=== PATIENT | male | born 1970 | race Hispanic/Latino ===

== ENCOUNTER 2018-04-07 19:18 | Emergency (ER) | payer MEDICAID ==
[2018-04-07 19:24] VITALS: BMI 26.6
[2018-04-07] MEDS ORDERED: Naloxone 0.4 mg/ml Inj (Adult) ONE (19:31)
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
[2018-04-07 19:50] VITALS: RESP 18; TEMP 98.2
[2018-04-07 20:13] LABS: BASO # 0.01 K/mm3 (0.0-2.0); BASO % 0.1 % (0.0-3.0); EOS # 0.3 (0.0-0.7); EOS % 3.6 % (1.5-5.0); GRAN # 5.34 (1.4-6.5); GRAN % 56.5 % (50.0-68.0); HEMOGLOBIN 13.7 g/dL (14.0-18.0); LYMPH # 3.1 (1.2-3.4); LYMPH % 33.3 % (22.0-35.0); MEAN CELL VOLUME 87.5 fl (80.0-105.0); MEAN CORPUSCULAR HEMOGLOBIN 29.5 pg (25.0-35.0); MEAN CORPUSCULAR HGB CONC 33.7 g/dl (31.0-37.0); MEAN PLATELET VOLUME 10.6 fl (7.0-11.0); MONO # 0.6 (0.1-0.6); MONO % 6.5 % (1.0-6.0); RBC 4.65 10^6/uL (3.5-6.1); RED CELL DISTRIBUTION WIDTH 15.3 % (11.5-14.5)
[2018-04-07 20:16] LABS: WHITE BLOOD COUNT 9.4 10^3/ul (4.5-11.0)
[2018-04-07] MEDS ORDERED: Sodium Chloride 0.9% 1,000 ML IV STA (20:18)
[2018-04-07 20:19] LABS: ACETAMINOPHEN < 10.0 ug/ml (10.0-20.0); SALICYLATE < 1 mg/dL (2.0-20.0)
[2018-04-07 20:20] LABS: ALT/SGPT 98 U/L (7-56); AST/SGOT 92 U/L (17-59); BLOOD UREA NITROGEN 17 mg/dL (7-21); CALCIUM 8.7 mg/dL (8.4-10.5); GFR AFRICAN-AMERICAN > 60; GFR NON-AFRICAN AMERICAN > 60
[2018-04-07 20:22] LABS: INR 1.03 (0.93-1.08); PARTIAL THROMBOPLASTIN TIME 36.7 Seconds (25.1-36.5); PROTHROMBIN TIME 11.7 SECONDS (9.4-12.5)
[2018-04-07 20:31] LABS: TROPONIN I < 0.01 ng/mL
[2018-04-07 20:42] LABS: CK-MB 4.5 ng/mL (0.0-3.6)
[2018-04-07 21:22] VITALS: BP 124/72; PULSE 68; O2SAT 100
--- NOTE | 2018-04-08 09:59 | CARD ---
APPROVED REPORT EKG Measurement Heart [id number] <Conclusion> Marked sinus bradycardia, new
== END 2018-04-07 21:19 | disposition left against medical advice (07) ==
LOC: ED 19:18
DX: T65.91XA Toxic effect of unspecified substance, accidental (unintentional), initial encounter (principal); R42 Dizziness and giddiness; F17.210 Nicotine dependence, cigarettes, uncomplicated
CPT/HCPCS: 80053; 80320; 80329; 82550; 82553; 83615; 83735; 84484; 85025; 85610; 85730; 93005; 96360; 99285; J2310; J7030